=== PATIENT | female | born 1935 | race Caucasian/White ===

== ENCOUNTER 2017-02-19 13:37 | Inpatient (IN) ==
[2017-02-19] MEDS ORDERED: PROTONIX IV SCH (15:00)
[2017-02-19] MEDS ORDERED: SODIUM CHLORIDE 0.9% INJ SCH (15:00)
[2017-02-19] MEDS ORDERED: LEVAQUIN 750 MG/D5W 750 MG/150 ML IVPB IV SCH (15:00)
[2017-02-19] MEDS ORDERED: SINGULAIR PO PRN (15:04)
[2017-02-19] MEDS ORDERED: ROCEPHIN 1 GM/NS 1 GM/50 ML IVPB IV SCH (15:30)
[2017-02-19 15:51] LABS: MANUAL DIFF NEEDED? NO
[2017-02-19 15:55] LABS: BASO% 0.3 % (0.0-0.8); EOS# 0.24 X1000 (0.0-0.7); EOS% 2.5 % (0.0-10.0); HEMATOCRIT 33.1 % (37.0-47.0); HEMOGLOBIN 11.2 g/dL (12.0-16.0); IMM GRAN# 0.01 X1000 (0.0-0.04); IMM GRAN% 0.1 % (0.0-0.5); LYMPH# 1.71 X1000 (1.2-3.4); LYMPH% 17.5 % (20.5-51.1); MCH 31.2 PG (27-31); MCHC 33.8 g/dL (33-37); MCV 92.2 FL (81-99); MONO# 1.02 X1000 (0.11-0.59); MONO% 10.4 % (1.7-9.3); MPV 10.2 FL (7.4-10.4); NEUT% 69.2 % (42.2-75.2); PLT 289 X1000 (130-400); RBC 3.59 XMIL (4.2-5.4)
[2017-02-19 16:27] LABS: ALBUMIN 4.4 g/dL (3.5-5.0); CALCIUM 9.4 mg/dL (8.8-10.2); POTASSIUM 3.3 mmol/L (3.5-5.1); TOTAL BILIRUBIN 0.5 mg/dL (0.20-1.00); TOTAL PROTEIN 7.1 g/dL (6.3-8.3)
--- NOTE | 2017-02-19 16:52 | Diag Imaging Result Document ---
PROCEDURE NAME: CHEST-2 VIEWS - 02/19/2017 TWO VIEWS OF THE CHEST: FINDINGS: There is a prominent fat pad near the left costophrenic sulcus laterally. There has been no significant change since 02/15/2017 or 09/08/2015. IMPRESSION: Stable chest.
--- NOTE | 2017-02-19 17:03 | HISTORY AND PHYSICAL ---
PRIMARY CARE PHYSICIAN: Dr. Shiv Monae. CHIEF COMPLAINT: Left lower lobe pneumonia, failed outpatient treatment. HISTORY OF PRESENT ILLNESS: This is an 81-year-old female with a history of atrial fibrillation, CAD, pulmonary hypertension, gastroparesis, GERD, She is a direct admit via her primary care physician, Dr. Shiv Monae, for left lower lobe pneumonia with failed outpatient treatment. The patient states that Friday she went to the emergency room having an episode of atrial fibrillation. She stated she had been in it for quite some time. She tried vagal maneuvers multiple times along with rest. Her rhythm did not normalize, therefore she presented to the emergency room. Between triage and being seen by the physician she states she converted to a sinus rhythm. Chest x-ray was performed and was found to have left lower lobe atelectasis. She was given a prescription for a Z-Abdirizak. She stated that she told the emergency room physician she was unable to take Zithromax, that she has taken it in the past and she had severe nausea and vomiting, although they would not change the prescription so she did not fill it. She was evaluated by Dr. Monae on Friday. At this time she was given Levaquin and clindamycin. She states she did feel those, she started taking them Friday night. At the time of admission she complains of epigastric pain and increase in reflux. She states that she has "horrible reflux" that she has had for many years, having multiple workups. In fact, she did have a gastric emptying study done in 2011 which revealed a greater than 165 minute emptying time. She denies any chest pain, palpitations, shortness of breath, cough, PND, orthopnea. She is being admitted for further evaluation and treatment. PAST MEDICAL HISTORY: Gastroesophageal reflux disease. Gastroparesis with an emptying time of greater than 165 minutes. Atrial fibrillation, paroxysmal. CAD. Pulmonary hypertension. Hypertension and right bundle branch block. PAST SURGICAL HISTORY: Tonsillectomy, adenoidectomy, appendectomy, multiple breast biopsies, cholecystectomy, bilateral cataracts, breast reduction, cardiac cath with 2 stents. SOCIAL HISTORY: She does live at home with her . She denies alcohol or illicit drug use. She does smoke daily. ALLERGIES: Sulfa, which causes generalized body swelling. HOME MEDICATIONS: Tribenzor 20/5/12.5 daily, Singulair 5 daily, aspirin 81 mg daily, Bystolic 2.5 daily, Protonix 40 daily, Crestor 10 at bedtime, and K-Dur 10 daily. REVIEW OF SYSTEMS: A 14 point review of systems is discussed with patient with pertinent positives stated in the HPI. She denied chest pain, palpitations, dizziness, syncope shortness of breath, PND, orthopnea, vomiting, diarrhea, constipation, black or bloody vomitus, black or bloody stools. PHYSICAL EXAMINATION: GENERAL: This is an 81-year-old female who is sitting in the bed, in no distress. VITAL SIGNS: Blood pressure is 153/63, with a heart rate of 63, respirations are 18, temperature is 97.8 degrees oral with room air saturations of 98%-100%. HEENT: Head is normocephalic, atraumatic. Pupils equal, round, react to light. EOMs are intact. Sclerae anicteric. Mucous membranes are moist. NECK: Supple. Trachea midline. CARDIOVASCULAR: Regular rate and rhythm. S1, S2 appreciated. PULMONARY: Breath sounds are diminished in the bases. They are clear with no increased work of breathing noted GASTROINTESTINAL: Abdomen is soft. Epigastric and right upper quadrant tenderness, with bowel sounds in all 4 quadrants. BACK: No CVAT. No spine tenderness. MUSCULOSKELETAL: Good range of motion of joints. NEUROLOGIC: She is alert and oriented x3. EXTREMITIES: No clubbing, cyanosis, or edema. Calves are nontender, and pulses are palpable x4. ASSESSMENT AND PLAN: 1. Left lower lobe pneumonia. 2. Gastroesophageal reflux disease. 3. Hypertension. 4. Atrial fibrillation, paroxysmal. 5. Coronary artery disease. 6. History of right bundle branch block. 7. Gastroparesis with emptying greater than 165 minutes. 8. Deep venous thrombosis prophylaxis. 9. Gastrointestinal prophylaxis. She will be admitted to the hospital, placed on telemetry. We will repeat a PA and lateral chest x-ray. Blood cultures will be obtained. As the patient has had increase in nausea and epigastric pain with Levaquin and clindamycin, we will start Rocephin. Incentive spirometer. We will draw a basic labs. We will give supplemental oxygen if needed. We will identify and continue her home medications as appropriate. We will give Protonix IV for DVT prophylaxis. We will use 40 mg of Lovenox. The patient has had a long history of atrial fibrillation. She says she intermittently goes in and out. She is on no anticoagulation, we will verify. Further treatments pending hospital course. Dictated by JIMENA Mckeon for Meliton Nichols MD cc: JIMENA Mckeon MD
[2017-02-19] MEDS: NS 1,000 ML IV SCH (18:12)
[2017-02-19] MEDS: LOVENOX SUBQ SCH (18:13)
[2017-02-20 06:20] LABS: HEMATOCRIT 31.2 % (37.0-47.0); HEMOGLOBIN 10.1 g/dL (12.0-16.0); MCHC 32.4 g/dL (33-37); MCV 92.6 FL (81-99); MPV 10.1 FL (7.4-10.4); RBC 3.37 XMIL (4.2-5.4)
[2017-02-20 07:01] LABS: CALCIUM 9.5 mg/dL (8.8-10.2); POTASSIUM 3.5 mmol/L (3.5-5.1)
[2017-02-20] MEDS: NS 1,000 ML IV SCH (07:01)
[2017-02-20] MEDS ORDERED: ZOFRAN IV PRN (07:53)
[2017-02-20] MEDS ORDERED: OMNICEF PO SCH (09:00)
[2017-02-20] MEDS ORDERED: ASPIRIN PO SCH (09:00)
[2017-02-20] MEDS ORDERED: HYDROCHLOROTHIAZIDE PO SCH (09:00)
[2017-02-20] MEDS ORDERED: NORVASC PO SCH ×2 (09:00)
[2017-02-20] MEDS ORDERED: BYSTOLIC PO SCH (09:00)
[2017-02-20] MEDS ORDERED: KLOR-CON PO SCH (09:00)
[2017-02-20] MEDS: BENICAR PO SCH ×2 (10:18→10:21)
--- NOTE | 2017-02-20 14:13 | CONSULTATION ---
DATE OF CONSULTATION: 02/20/2017 CARDIOLOGY CONSULTATION: IMPRESSION: 1. Recent episode of tachy palpitations, probably paroxysm of atrial fibrillation. Patient is presently in sinus rhythm. 2. Suspected pneumonia for which patient has been hospitalized for treatment. 3. Hypertension. 4. Atherosclerotic coronary disease. Patient continues without angina. 5. Hyperlipidemia. RECOMMENDATIONS: 1. Continue to monitor on telemetry while patient is hospitalized. 2. Will obtain echocardiography. 3. If further tachy palpitations and evidence of atrial fibrillation manifests we will consider possible initiation of long-term anticoagulation for thromboembolic risk protection. This was discussed with the patient. HISTORY: This 81-year-old, white female, with past history of atherosclerotic coronary disease, hypertension, hypercholesterolemia, and possible previous episode of atrial fibrillation 7 years ago without recurrence was hospitalized because of suspected pneumonia. This past Friday around 7:30 p.m. while watching television she developed tachy palpitations. This persisted perhaps an hour and would not resolve with vagal maneuvers. She is a retired nurse. After about an hour of tachy palpitations she went to the emergency room and her tachy palpitations resolved 15 minutes after her arrival. It was suspected of being atrial fibrillation. She relates her chest x-ray was abnormal and felt to represent pneumonia. She was given Levaquin intravenously. She was given a prescription for Z-Abdirizak but did not take this medication due to the fact that it tends to cause significant nausea. She had followup in her primary care physician's office 2 days later and was put on Levaquin and clindamycin to complete treatment of suspected pneumonia. She has had some problems with nausea with her current antibiotic regimen and ultimately started feeling weak and came in for evaluation and was admitted. She is in sinus rhythm. She has not had any further tachy palpitations. She indicates that she had an arrhythmia 7 years ago that was thought to possibly be atrial fibrillation but her refrigerator repair technician subsequently was skeptical regarding this. She continues without angina. There has been no cough or fever. PAST MEDICAL HISTORY: 1. Atherosclerotic coronary disease with history of previous coronary angioplasty/stenting of left anterior descending coronary artery in 2009 and of the right coronary artery in 2010. 2. Hypertension. 3. Hypercholesteremia. PAST SURGICAL HISTORY: Includes appendectomy, cholecystectomy, several breast biopsies, breast reduction surgery. CURRENT MEDICATIONS: As listed. She is currently on aspirin as antiplatelet agent. SOCIAL HISTORY: She is a retired registered nurse. Her is a correctional casework specialist. She does not smoke or use alcohol. FAMILY HISTORY: Negative for premature coronary disease. REVIEW OF SYSTEMS: Pulmonary: Negative for cough or dyspnea. Gastrointestinal: Noteworthy for problematic nausea. Constitutional: Negative for fever. REVIEW OF SYSTEMS: Negative/noncontributory with 14 total systems reviewed. PHYSICAL EXAMINATION: A pleasant, older, white female, in no distress.Vital Signs: As recorded are stable. HEENT: Extraocular movements intact. Mucous membranes are moist. Neck: Supple. No JV distention. There are no carotid bruits. Chest: Clear to auscultation. Cardiac: A regular rate and rhythm with normal first and 2nd heart sounds. A grade 1/6 systolic murmur is present at the right upper sternal border. No gallop could be appreciated. Abdomen: Soft, nontender. Extremities: Without edema. Neurologic Exam: Alert, fully oriented. Speech is fluent. She moves all 4 extremities equally well. Skin: Warm and dry. Psychiatric: Reveals her mood to be appropriate. DIAGNOSTIC DATA: ECG monitor shows sinus rhythm and right bundle branch block. cc: Carroll Callahan MD
[2017-02-20] MEDS: LOVENOX SUBQ SCH (14:42)
[2017-02-20 17:18] VITALS: BP 156/52
--- NOTE | 2017-02-20 17:31 | ECHO REPORT ---
ORDER DATE: 02/20/2017 INTERPRETING PHYSICIAN: Dr. Peña REQUESTING PHYSICIAN: CLINICAL INDICATIONS: M-MODE MEASUREMENTS: Right ventricle: 3.6 cm. Left ventricle end diastole: 5.0 cm. Left ventricle end systole: 4.0 cm. Posterior wall: 1.0 cm. Interventricular septum: 1.0 cm. Left atrium: 3.7 cm. Aortic root: 3.1 cm. SUMMARY OF 2-DIMENSIONAL IMAGING: The left ventricular function is normal. Ejection fraction estimated at 55%. The chamber is at the upper limits of normal. No wall motion abnormality is noted. The right ventricle appears to be moderately enlarged. The pulmonic valve looks normal. Color flow mapping unremarkable. The tricuspid valve shows a mild to moderate degree of regurgitation. The inferior vena cava is not dilated. Pulmonary pressure is estimated to be in the range of 44-49 mmHg. The mitral valve looks normal. Color flow mapping indicates trace regurgitation. Pulse wave Doppler of mitral inflow is normal. Tissue Doppler of septal and lateral mitral annulus averages 7.5 cm per second. Pulmonary venous flow is normal. There is no diastolic dysfunction. The aortic valve looks normal. Color flow mapping unremarkable. There is no pericardial effusion, masses or thrombus. IMPRESSION: In summary, this study shows: 1. Excellent left ventricular systolic function. 2. No diastolic dysfunction. 3. [id number] degree of tricuspid regurgitation with a pulmonary pressure in the order of 44- 49 mmHg. 4. Unremarkable aortic, mitral, and pulmonary valves. Clinical correlation recommended. cc: MD Carroll Shaffer MD
[2017-02-21] MEDS ORDERED: PRILOSEC PO SCH (07:00)
--- NOTE | 2017-03-02 21:28 | DISCHARGE SUMMARY ---
ADMISSION DATE: 02/19/2017 DISCHARGE DATE: 02/20/2017 DISCHARGE DIAGNOSES: 1. Left lower lobe pneumonia improved. 2. Chronic reflux. 3. Hypertension. 4. Paroxysmal atrial fibrillation stable. 5. Known coronary artery disease. 6. Gastroparesis with a significantly delayed emptying time of 165 minutes. 7. Deep vein thrombosis prophylaxis. CONSULTATIONS: None. PROCEDURES: None. BRIEF HOSPITAL COURSE: The patient is an 81-year-old female who was admitted as noted on the HPI. Treated in usual fashion. Placed on antibiotics, breathing treatments. She was given Levaquin and clindamycin. On discharge she is awake, alert. She is in no distress and she was feeling better and asking to go home. DISPOSITION: The patient will be discharged home. She will follow up outpatient with her primary care Dr. Monae. TIME SPENT: 35 minutes was spent in discharge planning and instructions. MEDICATIONS: No changes were made on her chronic home medications otherwise. cc: Meliton Nichols MD
== END 2017-02-20 19:40 | disposition home or self-care (01) ==
LOC: P.DIRADM 13:37 → P.MEDSURG 13:58
PROVIDERS: ATTEND Family Medicine

== ENCOUNTER 2019-02-16 10:57 | Inpatient (IN) ==
[2019-02-16 12:57] LABS: URINE SOURCE CLEAN CATCH
[2019-02-16 13:01] LABS: BILIRUBIN URINE NEGATIVE (NEGATIVE); BLOOD URINE NEGATIVE (NEGATIVE); COLOR YELLOW; GLUCOSE URINE NEGATIVE (NEGATIVE); KETONE URINE NEGATIVE (NEGATIVE); LEUKOCYTES URINE NEGATIVE (NEGATIVE); NITRITE URINE NEGATIVE (NEGATIVE); PROTEIN URINE NEGATIVE (NEGATIVE); TURBIDITY URINE CLEAR (CLEAR); UR EPITHELIAL CELLS <10 /HPF (<10); URINE BACTERIA NEGATIVE /HPF; URINE RBC <10 /HPF (<10); URINE WBC <10 /HPF (<10); UROBILINOGEN URINE NORMAL (NORMAL)
[2019-02-16] MEDS: NS 1,000 ML IV SCH (13:21)
[2019-02-16] MEDS: SODIUM CHLORIDE 0.9% INJ SCH (13:22)
[2019-02-16] MEDS: PROTONIX IV SCH (13:22)
[2019-02-16 13:50] LABS: BASO# 0.06 X1000 (0.0-0.2); BASO% 0.6 % (0.0-0.8); EOS# 0.23 X1000 (0.0-0.7); EOS% 2.3 % (0.0-10.0); HEMATOCRIT 31.3 % (37.0-47.0); HEMOGLOBIN 9.8 g/dL (12.0-16.0); IMM GRAN# 0.02 X1000 (0.0-0.04); IMM GRAN% 0.2 % (0.0-0.5); LYMPH# 2.02 X1000 (1.2-3.4); LYMPH% 20.1 % (20.5-51.1); MCH 27.7 PG (27-31); MCHC 31.3 g/dL (33-37); MCV 88.4 FL (81-99); MONO# 0.84 X1000 (0.11-0.59); MONO% 8.3 % (1.7-9.3); MPV 9.5 FL (7.4-10.4); NEUT# 6.89 X1000 (1.4-6.5); NEUT% 68.5 % (42.2-75.2); PLT 307 X1000 (130-400); RBC 3.54 XMIL (4.2-5.4); RDW 14.6 % (11.5-14.5); WBC 10.06 X1000 (4.8-10.8)
[2019-02-16 13:55] LABS: INR 1.36; PROTIME 17.9 Seconds (11.0-16.0)
[2019-02-16 14:14] LABS: CALCIUM 9.3 mg/dL (8.8-10.2); CREATININE 0.9 mg/dL (0.5-0.9); POTASSIUM 3.5 mmol/L (3.5-5.1)
--- NOTE | 2019-02-16 14:30 | EKG Report ---
Test Performed on : 02/16/2019 1:32:33 PM Test Reason : chest pain Blood Pressure : / mmHG Vent. Rate : 060 BPM Atrial Rate : 060 BPM P-R Int : 174 ms QRS Dur : 138 ms QT Int : 462 ms P-R-T Axes : 061 -29 -05 degrees QTc Int : 462 ms Normal sinus rhythm. Right bundle branch block Minimal voltage criteria for LVH, may be normal variant Abnormal ECG When compared with ECG of 29-MAY-2018 06:57, Nonspecific T wave abnormality no longer evident in Lateral leads Unconfirmed Result
[2019-02-16] MEDS: COREG PO SCH (20:44)
[2019-02-16] MEDS: CRESTOR PO SCH (20:47)
--- NOTE | 2019-02-16 21:55 | HISTORY AND PHYSICAL ---
CHIEF COMPLAINT: Bleeding per rectum since 1 day ago. HPI: She is 83-year-old white female came my office today with heavy bleeding per rectum for the last 24 hours. She appears to be pale, slightly dizzy upon standing. She is also Xarelto. In the past patient was seen by Dr. Cancino and the last colonoscopy was in 2016. It has been reported diverticulosis. She also complaining of lower abdominal cramps. In light of Xarelto and bleeding per rectum the patient was admitted to the hospital for observation. PAST MEDICAL HISTORY: Right bundle branch block, allergic rhinitis, CAD, hiatal hernia with esophageal reflux disease, hearing loss, hypertension, paroxysmal atrial fibrillation, peripheral arterial disease, right upper quadrant sebaceous cyst incision and drainage 2017, vitamin B12 deficiency. PAST SURGICAL HISTORY: Blepharoplasty, breast reduction surgery, history of coronary stents 2006, , 12 x 3, cataract surgery, tonsillectomy, benign breast biopsy, appendectomy, cholecystectomy, status post pacemaker August in 2017 in [place], bilateral cataract surgery. MEDICINES: Report my office aspirin 81 mg daily, amlodipine 5 daily, Coreg 6.25 p.o. b.i.d., Colace 100 daily, Crestor 10 daily, vitamin D3 2000 units daily, potassium 10 mEq daily, losartan 50 mg daily, Protonix 40 mg daily, Singulair 10 daily, Xarelto 20 mg daily. ALLERGIES: Sulfa. 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 No smoking. No alcohol. Living in [place]. FAMILY HISTORY: Father 54 in jail due to medication error. Mom of stroke and CVA. No significant family history of colon cancer. HEALTH MAINTENANCE: Flu vaccine 2018, Prevnar 13 in 2018, pneumococcal vaccine 2017, shingles 2016, mammography 2017, DEXA scan 2015, Pap smear 2016, last colonoscopy [address] Last [address] scan of the abdomen and pelvis was 10/06/2018 was negative. REVIEW OF SYSTEMS: HEENT: Slightly dizziness. No headache, no vision problem. No earache, no sore throat. Neck: No goiter. No lymphadenopathy., No bruit. Cardiopulmonary: No chest pain, shortness of breath, PND, orthopnea, no palpitations. GI: No nausea and bleeding per rectum. No abdominal pain. : No history of hesitancy, dysuria, frequency of urination. No swelling of legs. No joint pain. Neuro: No focal symptoms or weakness. PHYSICAL EXAMINATION: Temperature is 97.8 degrees, pulse is 60, blood pressure 159/69. HEENT: Very pale and nose and throat within normal limits. NECK: Supple. No lymphadenopathy. CHEST: Clear. HEART: Sounds are regular. BELLY: Is soft, nontender. Good bowel sounds. No signs of peritonitis. No peripheral edema, cyanosis. No obvious neurological deficits. INVESTIGATIONS: CBC. White cell count 10, hematocrit 31, platelets 307,000, PT 17, INR 1.36. SMA 7 is normal. Urinalysis is clear. ASSESSMENT AND PLAN: 1. 83-year-old white female with paroxysmal atrial fibrillation on Xarelto, aspirin came in with bleeding per rectum, slightly anemic. Previous CT of the abdomen and pelvis is negative September 2018, previous colonoscopy by Dr. Cancino in 2016 is negative. Plan is orthostatic daily CBC, will hold the Xarelto and aspirin, IV fluids, reconcile home medicines except anticoagulants, consult with Dr. Cancino. 2. Abnormal EKG with right bundle. 3. Coronary artery disease on multiple stents last stress test 05/29/2018 is negative, on Coreg. 4. Hypertension on amlodipine and losartan. 5. Vitamin B12 replacement therapy. Hyperlipidemia on Crestor. Peripheral artery disease with right common iliac artery asymptomatic. Will follow up on the labs in the morning and will watch the symptoms and signs of GI bleeding. cc: Joaquín Gaxiola MD
[2019-02-17] MEDS: NS 1,000 ML IV SCH ×2 (02:15→18:33)
[2019-02-17 07:53] LABS: BASO# 0.05 X1000 (0.0-0.2); BASO% 0.7 % (0.0-0.8); EOS# 0.25 X1000 (0.0-0.7); EOS% 3.7 % (0.0-10.0); HEMATOCRIT 30.6 % (37.0-47.0); HEMOGLOBIN 9.5 g/dL (12.0-16.0); LYMPH# 1.55 X1000 (1.2-3.4); LYMPH% 22.7 % (20.5-51.1); MCH 27.6 PG (27-31); MONO# 0.65 X1000 (0.11-0.59); MONO% 9.5 % (1.7-9.3); MPV 9.7 FL (7.4-10.4); NEUT# 4.32 X1000 (1.4-6.5); NEUT% 63.4 % (42.2-75.2); PLT 255 X1000 (130-400); RBC 3.44 XMIL (4.2-5.4); RDW 14.4 % (11.5-14.5); WBC 6.82 X1000 (4.8-10.8)
[2019-02-17] MEDS ORDERED: INJECTAFER IV ONE (08:18)
[2019-02-17] MEDS ORDERED: INJECTAFER 750 MG in NS 250 ML IV ONE (09:00)
[2019-02-17] MEDS: COZAAR PO SCH (09:53)
[2019-02-17] MEDS: COREG PO SCH ×2 (09:53→20:11)
[2019-02-17] MEDS: SINGULAIR PO SCH (09:54)
[2019-02-17] MEDS: VITAMIN D PO SCH (09:54)
[2019-02-17] MEDS: NORVASC PO SCH (09:54)
[2019-02-17] MEDS: COLACE PO SCH (09:54)
--- NOTE | 2019-02-17 10:20 | Diag Imaging Result Doc PS360 ---
EXAM: CT ABD/PELVIS W/IV CONT ONLY 02/17/2019 HISTORY: Abdominal pain TECHNIQUE: This exam was performed using automated exposure control, adjustment of mA or kV according to patient size, and/or use of iterative reconstruction technique. COMMENT: The current examination is compared with the previous study of 10/06/2018. There is slightly more interstitial opacity in the lung bases than on the previous examination particularly in the left lower lobe. The possibility of mild interstitial pulmonary edema cannot be excluded. There are atherosclerotic calcifications in the aorta. There is no evidence of aneurysm. The mesenteric and renal arteries are patent. There are numerous granulomata in the spleen. The liver is unremarkable. There is prominence of both renal pelves. No evidence of stones is present. There is mucosal thickening present in the left colon. Pericolic stranding and a small amount of fluid in the paracolic gutter is present. The small bowel is not distended. There are nonspecific mesenteric nodes none of which exceed a centimeter in size. These were also present on the previous study. The paracolic inflammatory changes demonstrated on today's study are not visible on the previous exam. Pelvis: There is diverticulosis in the sigmoid colon without evidence of active diverticulitis. There has been previous appendectomy. The urinary bladder is unremarkable. There are no masses and there is no evidence of significant adenopathy. There are degenerative disc changes particularly at the L4-5 and L5-S1 levels. There is scoliosis of the lumbar spine with convexity to the left. IMPRESSION: Left-sided colitis. The findings were discussed with Madiha Gaxiola MD at 02/17/2019 10:18 AM. Electronically signed by Roshan Cummings 02/17/2019 10:18 AM
--- NOTE | 2019-02-17 10:50 | GASTROENTEROLOGY CONSULTATION ---
DATE: 02/17/2019 REASON FOR CONSULT: rectal bleeding HPI: Ms. Calhoun is a 83 year old woman with pAFIB on Xarelto, HTN, HLD, CAD on stents on aspirin, s/p pacemaker, diverticulosis, hemorrhoids who presented with rectal bleeding with BRBPR over the last couple of days. She reports developing BRBPR preceded by abdominal cramping. She reports multiple episodes Friday that worsened after taking Xarelto on Friday. Her bleeding was worse after taking Xarelto. No melena or blood clots. No N/V/F, chest pain, SOB, chills, or sweats. She does report generalized weakness and MARIO. Her last colonoscopy was done by Dr. Cancino in 2015. ROS: as per HPI, otherwise 12 point ROBC negative PAST MEDICAL HISTORY: Right bundle branch block, allergic rhinitis, CAD, hiatal hernia with esophageal reflux disease, hearing loss, hypertension, paroxysmal atrial fibrillation, peripheral arterial disease, diverticulosis, hemorrhoids PAST SURGICAL HISTORY: Blepharoplasty, breast reduction surgery, history of coronary stents 2006, , x 3, cataract surgery, tonsillectomy, benign breast biopsy, appendectomy, cholecystectomy, status post pacemaker August in 2017 in [place], bilateral cataract surgery. HOME MEDS: aspirin 81 mg daily, amlodipine 5 daily, Coreg 6.25 p.o. b.i.d., Colace 100 daily, Crestor 10 daily, vitamin D3 2000 units daily, potassium 10 mEq daily, losartan 50 mg daily, Protonix 40 mg daily, Singulair 10 daily, Xarelto 20 mg daily. ALLERGIES: Sulfa. 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 No T/E/D. FAMILY HISTORY: No FHx of GI malignancies. PHYSICAL EXAMINATION: VS: Temperature is 97.8 degrees, pulse is 60, blood pressure 159/69, RR 18 O2 sat 98 RA GEN: awake, alert, NAD HEENT: anicteric, MMM, EOMI NECK: Supple. No lymphadenopathy. CHEST: CTAB, no wheezing HEART: RRR, no mrg ABD: soft NT/ND, NABS, no rebound or guarding EXT: no cce NEURO: nonfocal LABS: CBC. White cell count 10, hematocrit 31, platelets 307,000, PT 17, INR 1.36. BMP is normal. Urinalysis is clear. CTAP with IV / IMPRESSION: Left-sided colitis. The findings were discussed with Madiha Gaxiola MD at 02/17/2019 10:18 AM. A/P: Ms. Calhoun is a 83 year old woman with pAFIB on Xarelto, HTN, HLD, CAD on stents on aspirin, s/p pacemaker, diverticulosis, hemorrhoids who presented with rectal bleeding and abdominal pain found to have left-sided colitis from probable ischemic colitis. Will plan for diagnostic colonoscopy tomorrow to assess for severity and obtain biopsies. No leukocytosis and VSS; therefore, will hold off on initiating empiric antibiotics for now. #Hematochezia: 2/2 to probable ischemic colitis: will continue supportive care; IVFs, analgesics, avoid hypotension, clear liquid diet #Colitis: probable ischemic colitis: prep with 4L golytely for diagnostic colonoscopy tomorrow with Dr. Acosta, NPO after MN #Anemia: from above; s/p IV iron today; holding xarelto and aspirin; trending H/H, transfuse prn for goal hgb 7-8 #CAD: stable; no CP #pAFIB: rate controlled; holding xarelto #HTN: stable; on home meds; avoid hypotension #GI ppx: on PPI once daily Thank you for this consult. Will follow with you. cc: Joaquín Gaxiola MD [facility]
[2019-02-17] MEDS: PROTONIX IV SCH (12:29)
[2019-02-17] MEDS: SODIUM CHLORIDE 0.9% INJ SCH (12:30)
[2019-02-17] MEDS ORDERED: GOLYTELY PO ONE (14:00)
[2019-02-17] MEDS: CRESTOR PO SCH (20:11)
--- NOTE | 2019-02-17 20:58 | PROGRESS NOTE ---
DATE: 02/17/2019 SUBJECTIVE: No signs of active bleeding noted. Abdominal cramps. The rest of the review of systems are normal. OBJECTIVE: On exam, temperature is 97 degrees, pulse is 60, blood pressure is stable. HEENT exam: Pale. Chest is clear. Heart sounds are regular. Pacemaker on the left side noted. Belly is soft. No signs of peritonitis. LABORATORY DATA: CBC: White cell count 6.8, hematocrit 30, platelets 255,000. ASSESSMENT AND PLAN: 1. Lower gastrointestinal bleeding, stable. CT scan of the abdomen and pelvis showed some colitis, most likely ischemic. 2. Continue intravenous fluids. 3. Intravenous injection for 1 time. 4. Gastroenterology consult with Dr. Salinas. 5. Paroxysmal atrial fibrillation, currently stable, status post pacemaker. Off all anticoagulants. 6. Hypertension. Restarted home medicines. 7. Continue intravenous Protonix and check CBC in the morning. Appreciated Gastroenterology consult. Level of documentation 25 minutes. cc: Joaquín Gaxiola MD
[2019-02-18] MEDS: NS 1,000 ML IV SCH ×2 (02:35→10:42)
[2019-02-18 07:55] LABS: BASO# 0.05 X1000 (0.0-0.2); BASO% 0.7 % (0.0-0.8); EOS# 0.18 X1000 (0.0-0.7); EOS% 2.4 % (0.0-10.0); HEMATOCRIT 30.7 % (37.0-47.0); HEMOGLOBIN 9.6 g/dL (12.0-16.0); LYMPH# 1.15 X1000 (1.2-3.4); LYMPH% 15.1 % (20.5-51.1); MCH 27.4 PG (27-31); MCHC 31.3 g/dL (33-37); MCV 87.5 FL (81-99); MONO# 0.75 X1000 (0.11-0.59); MONO% 9.9 % (1.7-9.3); MPV 9.7 FL (7.4-10.4); NEUT# 5.47 X1000 (1.4-6.5); NEUT% 71.9 % (42.2-75.2); PLT 281 X1000 (130-400); RBC 3.51 XMIL (4.2-5.4); RDW 14.5 % (11.5-14.5)
[2019-02-18] MEDS ORDERED: XYLOCAINE-MPF 2% ONE (09:03)
[2019-02-18] MEDS ORDERED: DIPRIVAN 1% ONE (09:03)
--- NOTE | 2019-02-18 10:06 | OPERATIVE NOTE ---
PROCEDURE DATE: 02/18/2019 ATTENDING PHYSICIAN: Dr. Gaxiola. TITLE OF PROCEDURE: Colonoscopy with biopsy. PREOPERATIVE DIAGNOSES: 1. Rectal bleeding. 2. Anemia. POSTOPERATIVE DIAGNOSES: 1. Severe diverticulosis of the sigmoid and descending colon with torturous colon in the left side of the colon. 2. Internal hemorrhoids grade 2. 3. Evidence of colitis in the descending colon, likely ischemic colitis. This was biopsied. 4. Stool in the colon, which was lavaged. ESTIMATED BLOOD LOSS: Minimal. COMPLICATIONS: None. ANESTHESIA: Monitored anesthesia care per the anesthesiologist. SPECIMENS: Left colon biopsy. DESCRIPTION OF PROCEDURE: After informed consent, the patient explained the risks, benefits, indications, and alternatives to the procedure, the patient was prepared for a colonoscopy. The risks of the procedure including infection, bleeding, pain, trauma to the surrounding structures, perforation, and were explained the patient, among others, and she acknowledged and agreed to proceed. The patient was brought to the OR. She was turned to the left lateral position. Rectal exam was performed, which revealed normal rectal tone. No masses were felt. No blood on the examining finger. The colonoscope was introduced through the anal verge and was traversed all the way to the cecum. The cecum was identified using landmarks like IC valve and appendiceal orifice The bowel prep was fair. There was stool in the colon. It was lavaged. There was evidence of diverticulosis in the descending and sigmoid colon, moderate to severe, causing tortuosity in the left side of the colon. There was evidence of colitis in the form of erythema and mucosal edema in the left side of the colon, predominantly in the descending colon. This was biopsied to evaluate for ischemic colitis. Retroflexion in the rectum revealed internal hemorrhoids, grade 2. The air was aspirated. The scope was withdrawn. The patient tolerated the procedure well and is currently monitored in the OR in stable condition. RECOMMENDATIONS: 1. Patient will be on a full liquid diet today and advance as tolerated. 2. Patient will follow up in the clinic in 4 weeks of discharge to discuss the biopsy results. 3. Patient will start on a diverticulosis diet. Avoid excessive corn, nuts, and seeds in diet. 4. The patient will start on Metamucil 1 tablespoon at bedtime and she will take MiraLAX once daily as needed. 5. The patient will be continued on multivitamin once daily for anemia. 6. If patient stays anemic, then we may have to do EGD, likely as outpatient. 7. Further recommendations pending hospital course. Discussed with the patient and family and all questions were answered. Please call us with any further questions. cc: MD Joaquín Garcia MD MTDD
[2019-02-18] MEDS: SINGULAIR PO SCH (10:24)
[2019-02-18] MEDS: VITAMIN D PO SCH (10:25)
[2019-02-18] MEDS: COZAAR PO SCH (10:25)
[2019-02-18] MEDS: COLACE PO SCH (10:25)
[2019-02-18] MEDS: NORVASC PO SCH (10:25)
[2019-02-18] MEDS: COREG PO SCH ×2 (10:25→22:11)
[2019-02-18] MEDS: PROTONIX IV SCH (13:28)
[2019-02-18] MEDS: SODIUM CHLORIDE 0.9% INJ SCH (13:28)
[2019-02-18] MEDS: FLAGYL 500 MG/NS 500 MG/100 ML IVPB IV SCH ×2 (14:39→22:12)
[2019-02-18] MEDS ORDERED: METAMUCIL PO SCH (21:00)
--- NOTE | 2019-02-18 21:32 | PROGRESS NOTE ---
DATE: 02/18/2019 SUBJECTIVE: The patient is out of the bed. This morning, patient went to endoscopy by Dr. Acosta. No signs of active bleeding. Anxious to go home. Off all anticoagulants. Follow up on labs was discussed. OBJECTIVE: Vital signs: Temperature is 97 degrees, vitals are stable. Slightly dropping blood pressure but orthostatic. Physical exam: No change. INVESTIGATIONS: CBC: White cell count 7.6, hematocrit 30, platelets 281,000. ASSESSMENT AND PLAN: Hematochezia most likely ischemic colitis. Findings from Dr. Acosta's colonoscopy: Severe diverticulosis, internal hemorrhoids, evidence of descending colon colitis due to ischemia. Biopsy was pending. Plan of care is no need for antibiotics. We will discontinue IV fluids and add on Flagyl. Patient was given MiraLAX status post iron transfusion and on full liquid diet. Continue to hold on the anticoagulants, and we will check the orthostatic blood pressure. If she is stable, we will discharge home in the morning. LEVEL OF DOCUMENTATION: 25 minutes. cc: Joaquín Gaxiola MD
[2019-02-18] MEDS: CRESTOR PO SCH (22:11)
[2019-02-19] MEDS: FLAGYL 500 MG/NS 500 MG/100 ML IVPB IV SCH ×2 (05:28→14:01)
[2019-02-19 07:53] LABS: BASO# 0.04 X1000 (0.0-0.2); BASO% 0.6 % (0.0-0.8); EOS# 0.15 X1000 (0.0-0.7); EOS% 2.1 % (0.0-10.0); HEMATOCRIT 31.3 % (37.0-47.0); HEMOGLOBIN 9.9 g/dL (12.0-16.0); LYMPH# 0.93 X1000 (1.2-3.4); LYMPH% 12.9 % (20.5-51.1); MCH 27.7 PG (27-31); MCHC 31.6 g/dL (33-37); MCV 87.7 FL (81-99); MONO# 0.76 X1000 (0.11-0.59); MONO% 10.6 % (1.7-9.3); NEUT# 5.31 X1000 (1.4-6.5); NEUT% 73.8 % (42.2-75.2); PLT 285 X1000 (130-400); RBC 3.57 XMIL (4.2-5.4); RDW 14.5 % (11.5-14.5); WBC 7.19 X1000 (4.8-10.8)
[2019-02-19 08:24] LABS: AGAP 13; BUN 7 mg/dL (8-22); CALCIUM 9.5 mg/dL (8.8-10.2); CHLORIDE 107 mmol/L (98-107); COSMO 282; CREATININE 0.8 mg/dL (0.5-0.9); ESTIMATED GFR > 60; GLUCOSE 80 mg/dL (70-104); POTASSIUM 3.1 mmol/L (3.5-5.1); SODIUM 143 mmol/L (136-145); TCO2 23 mmol/L (25-35)
[2019-02-19] MEDS ORDERED: KLOR-CON PO ONE (08:49)
[2019-02-19] MEDS ORDERED: MIRALAX PO SCH (09:00)
[2019-02-19] MEDS: COLACE PO SCH (09:47)
[2019-02-19] MEDS: NORVASC PO SCH (09:47)
[2019-02-19] MEDS: VITAMIN D PO SCH (09:47)
[2019-02-19] MEDS: COREG PO SCH ×2 (09:47→20:51)
[2019-02-19] MEDS: SINGULAIR PO SCH (09:47)
[2019-02-19] MEDS: COZAAR PO SCH (09:47)
[2019-02-19] MEDS: PROTONIX IV SCH (14:01)
--- NOTE | 2019-02-19 20:03 | PROVIDER PROGRESS NOTE ---
Progress Note SUBJECTIVE: No acute overnight events. Afebrile. No N/V. She is tolerating liquid diet. She does report bloating after receiving metamucil and miralax. No rectal bleeding. OBJECTIVE: Last Vital Signs Temp 97.8 F 02/19/19 19:44 Pulse 65 02/19/19 19:44 Resp 18 02/19/19 19:44 BP 156/56 02/19/19 19:44 Pulse Ox 97 02/19/19 19:44 Height 5 ft 8 in Weight 141 lb 2 oz GEN: awake, alert, NAD HEENT: anicteric, MMM, EOMI NECK: supple, no jvd PULM: CTAB ABD: soft NT/ND, NABS EXT: no cce NEURO: nonfocal LABS: 02/19/19 02/19/19 06:50 06:50 WBC 7.19 Hgb 9.9 L Plt Count 285 Sodium 143 Potassium 3.1 L Chloride 107 Carbon Dioxide 23 L BUN 7 L Creatinine 0.8 Glucose 80 Colonoscopy 02/19 POSTOPERATIVE DIAGNOSES: 1. Severe diverticulosis of the sigmoid and descending colon with torturous colon in the left side of the colon. 2. Internal hemorrhoids grade 2. 3. Evidence of colitis in the descending colon, likely ischemic colitis. This was biopsied. 4. Stool in the colon, which was lavaged. A/P: Ms. Calhoun is a 83 year old woman with pAFIB on Xarelto, HTN, HLD, CAD on stents on aspirin, s/p pacemaker, diverticulosis, hemorrhoids who presented with rectal bleeding secondar to ischemic colitis. Colonoscopy revealed diverticulosis, hemorrhoids, and left-sided colitis consistent with ischemic colitis. This was biopsied. No leukocytosis and VSS. Patient is ambulatory. She reports bloating and discomfort with metamucil and miralax #Ischemic colitis - advance diet to low residue diet - f/u pathology, GI will follow as outpatient - no indication for abx given absence of ulceration on colonoscopy, normal WBC and VS - continue supportive care - avoid hypotension, NSAIDs #Hematochezia: resolved; 2/2 to above #Anemia: stable #CAD: stable; no CP; ok to resume aspirin upon discharge #pAFIB: rate controlled; holding xarelto; can resume upon discharge #HTN: stable; on home meds; avoid hypotension #GI ppx: on PPI once daily #Diverticulosis: patient should start high fiber diet in 2 weeks after colitis resolves If patient is able to tolerate low residue diet, then she is ok to be discharged from GI standpoint with follow-up in 2-4 weeks
--- NOTE | 2019-02-19 20:22 | PROGRESS NOTE ---
DATE: 02/19/2019 SUBJECTIVE: The patient is a little better. No signs of active bleeding noted. Some abdominal cramps. No fever. PHYSICAL EXAMINATION: Temperature is 97 degrees. Vitals are stable.HEENT: Within normal limits. Chest: Auscultation clear. Heart: Sounds are regular. Abdomen: Belly is soft. Nontender. No signs of peritonitis. LABS: CBC: White cell count 7, hematocrit 31, platelets 285,000. SMA 7: Potassium 3.1. INVESTIGATIONS: Biopsy findings are pending. ASSESSMENT AND PLAN: 1. Hematochezia, due to ischemic colitis. 2. Dr. Salinas wants to discontinue metronidazole. 3. We will hold the anticoagulants. 4. Follow up on active signs of bleeding. 5. Hypokalemia. Replace the potassium. If she is stable in the next 24 hours, we will discharge and advanced a gastrointestinal soft diet. LEVEL OF DOCUMENTATION: 25 minutes. cc: Joaquín Gaxiola MD
[2019-02-19] MEDS: CRESTOR PO SCH ×2 (20:51)
[2019-02-20] MEDS: NORVASC PO SCH (09:07)
[2019-02-20] MEDS: SINGULAIR PO SCH (09:07)
[2019-02-20] MEDS: COREG PO SCH (09:07)
[2019-02-20] MEDS: VITAMIN D PO SCH (09:07)
[2019-02-20] MEDS: COLACE PO SCH (09:07)
[2019-02-20] MEDS: COZAAR PO SCH (09:08)
[2019-02-20 11:48] VITALS: BP 128/56
[2019-02-20] MEDS ORDERED: CYANOCOBALAMIN IM ONE (11:51)
--- NOTE | 2019-02-21 22:35 | DISCHARGE SUMMARY ---
ADMISSION DATE: 02/17/2019 DISCHARGE DATE: 02/20/2019 DISCHARGING DIAGNOSIS: Hematochezia due to ischemic colitis. SECONDARY DIAGNOSES: 1. Abnormal EKG with right bundle branch block. 2. Allergic rhinitis. 3. Coronary artery disease. 4. Hiatal hernia with reflux disease. 5. Deafness. 6. Hypertension. 7. Paroxysmal atrial fibrillation. 8. Peripheral artery disease. 9. History of pacemaker. CONSULTS: Dr. Salinas. PROCEDURE: 1. EGD. Findings are suspicious for ischemic colitis in the splenic flexure and biopsies pending. 2. Radiology procedure. CT scan of the abdomen and pelvis, diverticulosis of sigmoid colon without diverticulitis, left-sided colitis. Prominence of both renal pelvises, no evidence of kidney stones noted. BRIEF HISTORY: Please see the H and P that was done on 02/16/2019. In brief she is 83-year-old white female admitted to the hospital with bleeding per rectum, abdominal cramps. Prior colonoscopy [address] Cancino and prior CT of the abdomen, pelvis September 2008 is unremarkable. HOSPITAL COURSE: There were no signs of active GI bleeding noted. Further workup revealed ischemic colitis in the left colon. The patient was advised to stop anticoagulants which includes aspirin and Xarelto. She has known history of paroxysmal atrial fibrillation and the patient got better with IV Flagyl and cramps are improved. During this hospital course, colonoscopy was done by Dr. Acosta. It is been reported severe diverticulosis, internal hemorrhoids, evidence of colitis in the descending colon. The rest of the hospital course was uneventful. DISCHARGE INSTRUCTIONS: Crestor 10 mg daily. Hold the aspirin. Protonix 40 daily, Coreg 12.5 p.o. b.i.d., Colace 100 daily, Singulair 5 mg daily, amlodipine 5 daily, losartan 25 daily, vitamin D3 5000 units daily and hold the Xarelto for 2 weeks. Follow up in my office in 10 days. cc: Mickey Acosta MD
== END 2019-02-20 12:39 | disposition home or self-care (01) | DRG 395 ==
LOC: DIRADM → 3N 10:57
PROVIDERS: ADMIT Internal Medicine; ATTEND Internal Medicine
CPT/HCPCS: 74177; 80048; 81001; 85025; 85610; 86850; 86900; 86901; 86920; 88305; 88313; 93005; 93010; A9270; C9113; J1439; J3420; J7030; J7050; Q9967; S0030; S0164